=== PATIENT | female | born 1945 | race Caucasian/White ===

== ENCOUNTER 2017-03-07 15:45 | Inpatient (IN) | payer BC ==
--- NOTE | ~2017-03-07 | DS ---
Discharge Summary [id number] [place]. [address] NAME: MATIAS MEDEL : 45 STATUS : DIS Ulices PAT#: [id number] AGE: 71 ADM/REG DATE : 03/07/17 MR#: [id number] REPORT SERV DATE: 03/11/17 DICTATED BY: CHICO SUTTON DATE: 03/10/17 REPORT STATUS : Draft TRANSCRIBED BY: MODL DATE: 03/10/17 ADMISSION DATE: 03/07/2017 DISCHARGE DATE: 03/10/2017 DISCHARGE DIAGNOSES: Include: 1. Chest pain. 2. Dyspnea on exertion. 3. Diabetes type 2, uncontrolled, most recent hemoglobin A1c 9.1. 4. Hazy ground-glass opacity upper and lower left lung otero per CT of the chest. 5. History of hypertension. DISCHARGE MEDICATIONS: Are as follows: Aspirin 81 mg daily, Precose 25 mg p.o. with meals, Januvia 100 mg at bedtime, vitamin B12 2500 mcg sublingual daily, vitamin D3 2000 units daily, Toujeo insulin 60 units subcutaneously daily, Neurontin 900 mg at that time, Amaris 180 mg daily p.r.n. for allergies, losartan 100 mg daily, magnesium oxide 400 mg daily, simvastatin 40 mg at bedtime, Glucophage 100 mg twice a day, Amaryl 400 mg twice a day, Artificial Tears p.r.n., and zinc 40 mg [id number] daily. HISTORY OF PRESENT ILLNESS: This is a pleasant 71-year-old white female who presented with chest pain and shortness of breath. Please see the initial H and P of Dr. Simon Beckham as the patient was admitted to the Hospitalist Service for further evaluation and treatment. Lab work was ordered and followed as well as a chest CTA and chest x-ray. CONSULTANTS DURING THIS ADMISSION: Include Pulmonology, Dr. Sydnie Cain and Dr. Michael Castro. PROCEDURES AND IMAGING DURING THIS ADMISSION: Include a CTA of the chest that showed no evidence of pulmonary embolus, but geographic areas of hazy ground-glass opacity upper and lower lung field suggesting early interstitial pulmonary edema or possibly an early interstitial pneumonitis pattern. The patient had a myocardial perfusion imaging stress test that was overall low risk with a postexercise LVEF of greater than 60%. No ischemia was demonstrated. She also had an echocardiogram performed, which showed an ejection fraction of 58%. No significant valvular dysfunction noted. PFTs were within normal limits. HOSPITAL COURSE: I began seeing the patient the following day on 03/08/2017 where she was symptomatically improving with no new complaints. Her blood sugars were quite elevated and adjustments were made to her overall glucose control regimen. She had the above-described testing performed, stress test, echocardiogram, pulmonary function testing; was seen by Pulmonary, who added lab tests that included an MELODY, RA, sedimentation rate, and CRP which were all negative as well and her procalcitonin was also negative. Pulmonary has recommended an outpatient CT scan to be performed in approximately 10 weeks prior to a followup with their office and also to obtain an overnight oximetry test for followup as well through her primary care, which is at the [facility]. Given her symptomatic improvement and negative workup so far, the patient was felt safe for discharge home on 03/10/2017 with the above-described medications, follow up with primary care as scheduled, follow up with Pulmonary Services in the next 10 to 12 weeks with that outpatient CT scan. Discharge Summary [address] [address] NAME: MATIAS MEDEL : 45 STATUS : DIS Ulices PAT#: [id number] AGE: 71 ADM/REG DATE : 03/07/17 MR#: [id number] REPORT SERV DATE: 03/11/17 DICTATED BY: CHICO SUTTON DATE: 03/10/17 REPORT STATUS : Draft TRANSCRIBED BY: MODL DATE: 03/10/17 She is in agreement with this plan going forward. Questions were answered extensively at bedside. Please note greater than 30 minutes was spent on this discharge for medication teaching, followup planning, and further disposition. DICTATED BY: Chico Sutton NP CSC/FLOR Chico Sutton NP / [id number] CC: MD RIYA Bass KATRINA V.
--- NOTE | ~2017-03-07 | HP ---
History And Physical [address] [place]. [address] NAME: MATIAS MACEDO : 45 STATUS : ADM Ulices PAT#: [id number] AGE: 71 ADM/REG DATE : 03/07/17 MR#: [id number] REPORT SERV DATE: 03/08/17 DICTATED BY: ANGELINE CEBALLOS DATE: 03/07/17 REPORT STATUS : Draft TRANSCRIBED BY: MODL DATE: 03/07/17 DATE OF ADMISSION: 03/07/2017 POINT OF ENTRY: [facility] Emergency Department PCP: Primary care physician is Dr. Conrado Gray. CHIEF COMPLAINT: Chest pain and shortness of breath. HISTORY OF PRESENT ILLNESS: Ms Macedo is a 71-year-old female with history of insulin- dependent diabetes mellitus type 2, hypertension, hyperlipidemia, who presents to the emergency department with reports of chest pain as well as shortness of breath. The patient states that for the past five to six days. She has had intermittent episodes of sharp stabby left-sided chest pain with radiation to the left arm with associated shortness of breath. The patient does states she is under a lot of stress lately and that these chest pain episodes typically come on with stress. However, she has also noticed it with exertion. She is unable to tell me any alleviating factors. The patient has had a recent stress test about a year ago at [place] and also for hypertension which reportedly was unremarkable. The patient has been taking aspirin for the last five or six days for her chest pains. The patient also states that she has been having some shortness of breath and dyspnea on exertion, primarily related with the chest pain episodes, but also at other times. She denies any lower extremity edema, wheezing, cough, sputum production, fevers, night sweats, or chills. Initial evaluation in the emergency department notable for a CT of the chest that was negative for PE, but radiologist was concerned for possible interstitial edema versus interstitial pneumonitis. EKG, cardiac enzymes, and chest x-ray were all unremarkable. The patient was subsequently to the Hospitalist Service for further evaluation and management. REVIEW OF SYSTEMS: Comprehensive system otherwise negative unless listed in history of present illness. PREVIOUS MEDICAL HISTORY: 1. Insulin-dependent diabetes mellitus type 2. 2. Hypertension. 3. Hyperlipidemia. 4. Thyromegaly. 5. Breast cancer. SURGICAL HISTORY: 1. Left mastectomy. 2. Uterine tumor resection. 3. Tonsillectomy. History And Physical [address] [place]. [address] NAME: MATIAS MACEDO : 45 STATUS : ADM Ulices PAT#: [id number] AGE: 71 ADM/REG DATE : 03/07/17 MR#: [id number] REPORT SERV DATE: 03/08/17 DICTATED BY: ANGELINE CEBALLOS DATE: 03/07/17 REPORT STATUS : Draft TRANSCRIBED BY: FLOR DATE: 03/07/17 ALLERGIES: NO KNOWN DRUG ALLERGIES. HOME MEDICATIONS: 1. Acarbose 25 mg with meals. 2. Artificial tears b.i.d. p.r.n. 3. Aspirin 81 mg q.h.s. 4. Vitamin D 2000 units daily. 5. Vitamin B12 of 2500 mcg daily. 6. Amaris 180 mg daily. p.r.n. 7. Gabapentin 900 mg q.h.s. 8. Amaryl 4 mg b.i.d. 9. Toujeo 60 units daily. 10.Cozaar 100 mg daily. 11.Magnesium oxide 400 mg daily. 12.Metformin 1000 mg b.i.d. 13.Zocor 40 mg q.h.s. 14.Januvia 100 mg q.h.s. 15.Zinc 40 mg daily. SOCIAL HISTORY: Denies any tobacco, alcohol, or illicits. Lives in [place], but is up here in [place] caring for her elderly mother. FAMILY HISTORY: Mother with coronary artery disease in her 80s, sick sinus syndrome, requiring pacemaker. Father with hypertension, coronary artery disease. Siblings with diabetes, hypertension, and thyroid cancer. LABS AND IMAGIN. White count is 10.1, hemoglobin is 14.1, hematocrit is 41.4, platelets 260. INR is 1.0. 2. Sodium is 137, potassium 4.1, chloride 104, carbon dioxide 28, BUN 24, creatinine 0.80, glucose is 116, calcium is 9.7, magnesium at 2.3. 3. Troponin is less than 0.02. BNP is 17.3. 4. Chest x-ray per my review shows no acute cardiopulmonary abnormality. EKG per my review shows normal sinus rhythm with no evidence of any acute ischemia or infarction. CT of the chest is negative for PE. It does show some early interstitial pneumonitis pattern versus interstitial edema. PHYSICAL EXAMINATION: VITAL SIGNS: Temperature is 98.3 degrees Fahrenheit, pulse is 102, respirations are 18, saturating 95% on room air, blood pressure is 139/74. On recheck, blood pressure is now 141/77, saturating 98% on room air, pulse of 90. GENERAL: The patient is awake, alert, in no acute distress. Resting comfortably in bed. She is a well-developed, well-nourished, elderly female. HEENT: Atraumatic and normocephalic. Moist mucous membranes. Pupils equal, round, reactive to light and accommodation. Extraocular eye movements intact. No scleral icterus. NECK: No jugular venous distention. No carotid bruits. History And Physical [address] [address] NAME: MATIAS MACEDO : 45 STATUS : ADM Ulices PAT#: [id number] AGE: 71 ADM/REG DATE : 03/07/17 MR#: [id number] REPORT SERV DATE: 03/08/17 DICTATED BY: ANGELINE CEBALLOS DATE: 03/07/17 REPORT STATUS : Draft TRANSCRIBED BY: FLOR DATE: 03/07/17 CARDIAC: Regular rate and rhythm. No murmurs, rubs, or gallops. Normal S1, S2. LUNGS: Clear to auscultation bilaterally. No wheezes, rhonchi, or crackles. ABDOMEN: Soft, nontender, nondistended with good bowel sounds. No rebound, guarding, or rigidity. EXTREMITIES: Warm and perfused. No cyanosis, clubbing, or edema. SKIN: Warm and dry. PSYCH: Affect appropriate. NEURO: Alert and oriented x3. Cranial nerves II through XII are grossly intact. Speech is normal. Gait not assessed. ASSESSMENT: Ms Macedo is a 71-year-old female, who presents with intermittent episodes of chest pain as well as shortness of breath. Problem list: 1. Chest pain. 2. Shortness of breath, dyspnea on exertion. 3. Concern for possible pneumonitis. 4. Insulin-dependent diabetes mellitus type 2. 5. Thyromegaly. 6. Hypertension. 7. Hyperlipidemia. PLAN: 1. Chest pain. We will admit the patient to Hospitalist Service. Trend out cardiac enzymes as well as EKGs. I will schedule her for an echocardiogram as well as a stress test in the morning. 2. Shortness of breath and dyspnea on exertion. BNP is within normal limits. Chest x-ray is clear. She is saturating well on room air. We will follow up results of echocardiogram. 3. Possible pneumonitis on CT. The patient denies any smoking history. Unclear is to what the potential etiology or differential for her pneumonitis changes could be. We will defer to Pulmonology consultation in the morning. 4. Insulin-dependent diabetes mellitus type 2. Check a hemoglobin A1c. Continue the patient's home to [facility], holding the rest of her oral hypoglycemics. Place on level 2 sliding scale. 5. Thyromegaly. We will check thyroid function studies. 6. DVT prophylaxis. Lovenox subcu. CODE STATUS: The patient wishes to be full code. ABDIRAHMAN/FLOR Angeline Ceballos MD History And Physical [address] [address] NAME: MATIAS MACEDO : 45 STATUS : ADM Ulices PAT#: [id number] AGE: 71 ADM/REG DATE : 03/07/17 MR#: [id number] REPORT SERV DATE: 03/08/17 DICTATED BY: ANGELINE CEBALLOS DATE: 03/07/17 REPORT STATUS : Draft TRANSCRIBED BY: FLOR DATE: 03/07/17 / [id number] CC: CONRADO RITTER V.
--- NOTE | ~2017-03-07 | PUL ---
[address] [place]. [address] NAME: MATIAS MEDEL : 45 STATUS : ADM Ulices PAT#: [id number] AGE: 71 ADM/REG DATE : 03/07/17 MR#: [id number] REPORT SERV DATE: 03/10/17 DICTATED BY: DENZEL CASTRO IV DATE: 03/09/17 REPORT STATUS : Draft TRANSCRIBED BY: MODL DATE: 03/09/17 PULMONARY FUNCTION TEST SPIROMETRY RESERVATIONIST COMMENTS: The patient's efforts were good. Results appear to be reproducible. FINDINGS: Baseline spirometry demonstrates a low normal FVC with a normal FEV1 and a high normal FEV1/FVC ratio. IMPRESSION: Normal spirometry. FEV1 is 2.24 L or 96% of predicted. NM/MODL Denzel Castro IV, M.D. / [id number] CC: MD CONRADO Arriaza
--- NOTE | ~2017-03-07 | CN ---
Consultation Report [facility] [address] [place]. [address] NAME: MATIAS MACEDO : 45 STATUS : ADM Ulices PAT#: [id number] AGE: 71 ADM/REG DATE : 03/07/17 MR#: [id number] REPORT SERV DATE: 03/08/17 DICTATED BY: SYDNIE MARTIN DATE: 03/08/17 REPORT STATUS : Draft TRANSCRIBED BY: MODL DATE: 03/08/17 DATE OF CONSULTATION: 03/08/2017 REASON FOR CONSULTATION: Abnormal CT scan of the chest. HISTORY OF PRESENT ILLNESS: Ms. Macedo is a 71-year-old, white female, lifelong nonsmoker, without a prior pulmonary diagnosis or prior pulmonary symptoms, who was admitted complaining of 2-3 weeks of intermittent sharp midline chest pain with associated shortness of breath and palpitations/tachycardia. Pulmonary was consulted secondary to ground-glass opacities noted on the CT angiogram of the chest done as part of her admission workup. She denies cough, wheezing, sputum production, fever, chills, night sweats, lower extremity edema, hemoptysis or chest tightness. She does complain of "some" dyspnea on exertion "when rushing around" for the past 2-3 weeks. She denies obstructive sleep apnea or nasal symptoms, but does have occasional GERD symptoms for the past several years. She denies joint pain, joint swelling, recent travel or exposures. She has a workup ongoing for coronary artery disease including an echocardiogram and a stress test planned. PAST MEDICAL HISTORY: As noted above, she denies prior pulmonary diagnosis. 1. Nonsmoker. 2. Hypertension. 3. Hyperlipidemia. 4. Diabetes mellitus/insulin requiring. 5. Breast cancer treated with a left mastectomy and tamoxifen. 6. Tonsillectomy. 7. Resection of uterine tumor. 8. Vitamin D deficiency. 9. Seasonal allergies. 10.Peripheral neuropathy. 11.GERD - not on medications. FAMILY HISTORY: She has a smoker sister who has COPD. SOCIAL HISTORY: Ms. Macedo is a lifelong nonsmoker. She denies secondhand smoke exposure, occupational exposures, ethanol intake, past/present drug use, or chewing tobacco. She is and has two daughters. MEDICATIONS: Outpatient and inpatient medications were reviewed and are as documented in the record. She is not on any pulmonary medications, but does take Amaris daily for allergy symptoms. Consultation Report [facility] [address] [place]. [address] NAME: MATIAS MACEDO : 45 STATUS : ADM Ulices PAT#: [id number] AGE: 71 ADM/REG DATE : 03/07/17 MR#: [id number] REPORT SERV DATE: 03/08/17 DICTATED BY: SYDNIE MARTIN DATE: 03/08/17 REPORT STATUS : Draft TRANSCRIBED BY: FLOR DATE: 03/08/17 ALLERGIES: SHE DENIES MEDICATION ALLERGIES. REVIEW OF SYSTEMS: A 10-point system review was conducted and is remarkable for symptoms as described in the history of present illness. PHYSICAL EXAMINATION: VITAL SIGNS: Temperature 97.8 degrees, heart rate 84, blood pressure 128/69, respiratory rate 16, oxygen saturation 96% on room air. GENERAL: Pleasant white female. Alert, oriented, in no apparent distress. HEENT: Normocephalic. Atraumatic. There is no scleral icterus. The conjunctivae are clear. The oropharynx is clear. NECK: Supple. No lymphadenopathy was noted. There is no JVD. LUNGS: Good effort. The lungs are clear to auscultation bilaterally. HEART: Regular rate and rhythm. No ectopy was noted. ABDOMEN: Soft. Nontender. Nondistended. There are normal bowel sounds in all four quadrants. No mass was noted. BILATERAL EXTREMITIES: There is no clubbing, cyanosis, or edema. No joint deformities or joint tenderness was noted. NEUROLOGICAL: A limited exam was found to be nonfocal. SKIN: No rashes were noted. LABORATORY RESULTS: The labs were reviewed and are as documented in the record. Notable labs include a white blood cell count of 8.3. The BNP on admission was 17.3. IMAGING: The chest x-ray done this admission did not reveal any infiltrates or effusions. There were no nodules noted. The heart is normal size. CT angiogram of the chest done at this admission did not reveal any pulmonary embolism. There are mild diffuse ground-glass opacities in both lungs, upper and lower lung otero. No nodules or masses were noted. The heart is mildly enlarged on CT. ASSESSMENT AND PLAN: Ms. Macedo is a 71-year-old, white female, nonsmoker, with chest pain and dyspnea on exertion as well as ground-glass opacities noted on the CT angiogram of her chest. The CT findings are more suspicious for pulmonary edema, but may be inflammatory versus infectious. She does have dyspnea on exertion. She also complains of some gastroesophageal reflux disease symptoms. RECOMMENDATION: 1. Await results of the stress test and echocardiogram. 2. Recheck BNP and chest x-ray. 3. Check procalcitonin and rheumatological markers including an MELODY and an ANCA. 4. Check a bedside spirogram. 5. Treat GERD symptoms. Consultation Report [address] [place]. [address] NAME: MATIAS MACEDO : 45 STATUS : ADM Ulices PAT#: [id number] AGE: 71 ADM/REG DATE : 03/07/17 MR#: [id number] REPORT SERV DATE: 03/08/17 DICTATED BY: SYDNIE MARTIN DATE: 03/08/17 REPORT STATUS : Draft TRANSCRIBED BY: FLOR DATE: 03/08/17 6. She will need followup chest imaging to reassess for possible resolution. We would undertake further pulmonary workup if there is no improvement in the ground-glass opacities noted on CT scan or she develops additional pulmonary symptoms. Thank you very much for this consultation. Further recommendations to follow after review of above testing. PS/FLOR Sydnie Martin M.D. / [id number] CC: MD Bernie Arriaza Katrina V.
[2017-03-07 16:37] LABS: BASOPHILS 0.5 %; BASOPHILS ABSOLUTE 0.05 10/3/uL (0.0-0.16); EOSINOPHILS 2.1 %; EOSINOPHILS ABSOLUTE 0.21 10/3/uL (0.0-0.53); HEMATOCRIT 41.4 % (36.0-48.0); HEMOGLOBIN 14.1 g/dL (12.0-16.0); IMMATURE GRANULOCYTES 0.2 %; IMMATURE GRANULOCYTES ABSOLUTE 0.02 10/3/uL (0.0-0.11); LYMPHOCYTES 32.1 %; LYMPHOCYTES ABSOLUTE 3.24 10/3/uL (0.67-4.30); MEAN CORPUS HGB CONC 34.1 g/dL (32.0-36.0); MEAN CORPUSCULAR HEMOGLOB 29.7 pg (26.0-34.0); MEAN CORPUSCULAR VOLUME 87.3 fL (80-100); MEAN PLATELET VOLUME 9.7 fL (9.2-13.0); MONOCYTES 9.1 %; MONOCYTES ABSOLUTE 0.92 10/3/uL (0.21-1.20); NEUTROPHILS ABSOLUTE 5.65 10/3/uL (2.02-8.40); PLATELET COUNT 260 10/3/uL (150-400); RBC DISTRIBUTION WIDTH 12.9 % (12.0-16.0); RED CELL COUNT 4.74 10/6/uL (4.0-5.6); WHITE BLOOD CELLS 10.1 10/3/uL (4.5-10.5)
[2017-03-07 16:39] LABS: ER CBC TAT 0 Hrs 12 MinsN; MANUAL DIFF NO %
[2017-03-07 16:50] LABS: BUN (BLOOD UREA NITROGEN) 24 MG/DL (6-23); CALCIUM, SERUM 9.7 MG/DL (8.5-10.4); CHEST PAIN PROFILE TAT 0 Hrs 25 Mins; CHLORIDE, SERUM 104 MMOL/L (96-112); CO2 (CARBON DIOXIDE) 28 MMOL/L (24-34); GFR AFRICAN AMERICAN 86 ML/MIN (>=60); GFR NON AFRICAN AMERICAN 74 ML/MIN (>=60); GLUCOSE, SERUM 116 MG/DL (60-99); POTASSIUM, SERUM 4.1 MMOL/L (3.5-5.3); SODIUM, SERUM 137 MMOL/L (135-148); TROPONIN I <0.02 NG/ML (<0.05)
[2017-03-07 16:51] LABS: PROTIME (NOT ORD) 13.1 SEC (12.0-14.5)
[2017-03-07] MEDS ORDERED: GLUCOPHAGE1000 MG PO (23:30)
[2017-03-07] MEDS ORDERED: JANUVIA100 MG PO (23:31)
[2017-03-07] MEDS ORDERED: ACARBOSE25 MG PO (23:31)
[2017-03-07] MEDS ORDERED: NEUR300 PO (23:31)
[2017-03-07] MEDS ORDERED: AMARYL4 PO (23:31)
[2017-03-07] MEDS ORDERED: TEARS PURE OPH (23:32)
[2017-03-07] MEDS ORDERED: TOUJEO SC (23:32)
[2017-03-07] MEDS ORDERED: COZAAR100 MG PO (23:32)
[2017-03-07] MEDS ORDERED: ZOCOR40 PO (23:32)
[2017-03-07] MEDS ORDERED: VITAMIN B-122500 MCG SL (23:33)
[2017-03-07] MEDS ORDERED: MAGOX4 PO (23:33)
[2017-03-07] MEDS ORDERED: HALF81 PO (23:33)
[2017-03-07] MEDS ORDERED: ZINC PO (23:33)
[2017-03-07] MEDS ORDERED: VITAMIN D31000 UNIT PO (23:34)
[2017-03-07] MEDS ORDERED: ALLEGRA180 PO (23:34)
[2017-03-08 06:20] LABS: BASOPHILS ABSOLUTE 0.08 10/3/uL (0.0-0.16); EOSINOPHILS 2.3 %; EOSINOPHILS ABSOLUTE 0.19 10/3/uL (0.0-0.53); HEMATOCRIT 40.8 % (36.0-48.0); IMMATURE GRANULOCYTES 0.4 %; IMMATURE GRANULOCYTES ABSOLUTE 0.03 10/3/uL (0.0-0.11); LYMPHOCYTES 38.5 %; LYMPHOCYTES ABSOLUTE 3.19 10/3/uL (0.67-4.30); MEAN CORPUS HGB CONC 34.3 g/dL (32.0-36.0); MEAN CORPUSCULAR HEMOGLOB 29.9 pg (26.0-34.0); MEAN PLATELET VOLUME 9.8 fL (9.2-13.0); MONOCYTES 10.5 %; MONOCYTES ABSOLUTE 0.87 10/3/uL (0.21-1.20); NEUTROPHILS 47.3 %; NEUTROPHILS ABSOLUTE 3.93 10/3/uL (2.02-8.40); PLATELET COUNT 222 10/3/uL (150-400); RBC DISTRIBUTION WIDTH 13.5 % (12.0-16.0); RED CELL COUNT 4.69 10/6/uL (4.0-5.6); WHITE BLOOD CELLS 8.3 10/3/uL (4.5-10.5)
[2017-03-08 06:22] LABS: MANUAL DIFF NO %
[2017-03-08 06:44] LABS: BUN (BLOOD UREA NITROGEN) 23 MG/DL (6-23); CALCIUM, SERUM 9.3 MG/DL (8.5-10.4); CHLORIDE, SERUM 104 MMOL/L (96-112); CO2 (CARBON DIOXIDE) 28 MMOL/L (24-34); CREATININE 0.84 MG/DL (0.55-1.02); FREE T4 0.94 NG/DL (0.76-1.46); GFR AFRICAN AMERICAN 81 ML/MIN (>=60); GFR NON AFRICAN AMERICAN 70 ML/MIN (>=60); GLUCOSE, SERUM 205 MG/DL (60-99); POTASSIUM, SERUM 4.1 MMOL/L (3.5-5.3); SODIUM, SERUM 140 MMOL/L (135-148)
[2017-03-08 10:42] LABS: CK-MB 2.6 NG/ML; CPK 147 U/L (0-200); TROPONIN I <0.02 NG/ML (<0.05)
[2017-03-09 06:14] LABS: ALBUMIN 3.7 G/DL (3.5-5.0); BUN (BLOOD UREA NITROGEN) 17 MG/DL (6-23); CALCIUM, SERUM 9.6 MG/DL (8.5-10.4); CHLORIDE, SERUM 106 MMOL/L (96-112); CO2 (CARBON DIOXIDE) 24 MMOL/L (24-34); CREATININE 0.79 MG/DL (0.55-1.02); GFR AFRICAN AMERICAN 87 ML/MIN (>=60); GFR NON AFRICAN AMERICAN 75 ML/MIN (>=60); GLUCOSE, SERUM 212 MG/DL (60-99); PHOSPHORUS, SERUM 3.9 MG/DL (2.5-4.5); POTASSIUM, SERUM 4.3 MMOL/L (3.5-5.3); SODIUM, SERUM 136 MMOL/L (135-148)
[2017-03-09 06:54] LABS: PROCALCITONIN 0.05 ng/mL (<0.5)
[2017-03-09 10:20] LABS: ANA TITER <1:40 TITER
[2017-03-09 18:07] LABS: C-REACTIVE PROTEIN 5.4 MG/L (<8.0)
[2017-03-09 18:10] LABS: RHEUMATOID FACTOR QUANT < 10 IU/ML (0-15)
[2017-03-11 22:53] LABS: ANCA <1:20 (()); MYELOPEROXIDASE ANTIBODY <0.2 AI (<1.0); PROTEINASE 3 ANTIBODY <0.2 AI (<1.0)
== END 2017-03-10 22:35 | disposition home or self-care (01) | DRG 303 ==
LOC: ER 15:45 → 2SO 23:59
PROVIDERS: Emergency Medicine; Internal Medicine; Internal Medicine Critical Care Medicine
DX: I25.10 Atherosclerotic heart disease of native coronary artery without angina pectoris (principal); E11.65 Type 2 diabetes mellitus with hyperglycemia; R06.00 Dyspnea, unspecified; G62.9 Polyneuropathy, unspecified; R07.9 Chest pain, unspecified; I10 Essential (primary) hypertension; E78.5 Hyperlipidemia, unspecified; K21.9 Gastro-esophageal reflux disease without esophagitis; G47.33 Obstructive sleep apnea (adult) (pediatric); J30.2 Other seasonal allergic rhinitis; Z82.5 Family history of asthma and other chronic lower respiratory diseases; Z85.3 Personal history of malignant neoplasm of breast; Z90.12 Acquired absence of left breast and nipple; Z82.49 Family history of ischemic heart disease and other diseases of the circulatory system; Z95.0 Presence of cardiac pacemaker; Z98.890 Other specified postprocedural states
CPT/HCPCS: 71020; 71275; 78452; 80048; 80069; 82550; 82553; 82962; 83036; 83516; 83516-59; 83735; 83880; 84145; 84439; 84443; 84484; 85025; 85610; 85652; 85730; 86039; 86140; 86255; 86431; 93005; 93017; 93306; 94010; 99285; A9270-GY; A9502; G0378; Q9967